=== PATIENT | female | born 1990 | race Asian ===

== ENCOUNTER → 2020-03-06 | Outpatient (CLI) | payer OTHER ==
[2020-03-06 10:22] LABS: PLATELET COUNT 216 x10^3mcL (130-400)
[2020-03-06 10:48] LABS: CALCIUM 9.2 mg/dL (8.5-10.1); CARBON DIOXIDE 30.1 mmol/L (21-32); CHLORIDE SERUM 101 mmol/L (98-107); CREATININE SERUM 0.7 mg/dL (0.6-1.0); GFR1 > 60 mL/min; GLUCOSE SERUM 86 mg/dL (74-106); SODIUM SERUM 136 mmol/L (136-145); URIC ACID 3.6 mg/dL (2.6-6.0)
[2020-03-06 11:01] LABS: BAND NEUTROPHIL 2 % (0-10); MONOCYTE 9 % (0-7); SEGMENTED NEUTROPHILS 60 % (37-75)
[2020-03-06 11:12] LABS: ALBUMIN 4.1 g/dL (3.4-5.0); ALKALINE PHOSPHATASE 52 U/L (46-116); ALT/SGPT 16 U/L (14-59); AST/SGOT 21 U/L (15-37); BILIRUBIN TOTAL 0.4 mg/dL (0.20-1.00); CHOLESTEROL 160 mg/dL (<200); CHOLESTEROL/HDL RATIO 2.5; HDL CHOLESTEROL 65 mg/dL (40-60); TRIGLYCERIDES 91 mg/dL (<150)
[2020-03-06 12:11] LABS: ERYTHROCYTE SED RATE 73 mm/hr (0-20)
[2020-03-06 12:37] LABS: rbc morphology (normal/abnorm) NORMAL (NORMAL)
[2020-03-06 12:59] LABS: BASOPHIL 0 % (0-2)
== END | disposition home or self-care (01) ==
LOC: LB 09:53
DX: Z00.00 Encounter for general adult medical examination without abnormal findings (principal); M25.50 Pain in unspecified joint; Z83.3 Family history of diabetes mellitus
CPT/HCPCS: 86431